=== PATIENT | female | born 1950 | race Caucasian/White ===

== ENCOUNTER 2017-08-15 12:13 | Observation (INO) | payer MEDICARE, OTHER ==
[~2017-08-15] VITALS: Ht 162.6 cm; Wt 65.8 kg
[2017-09-16] MEDS ORDERED: ADVAIR 250-501 EACH INH (11:17)
[2017-09-16] MEDS ORDERED: ASPIR-LOW81 MG PO (11:17)
[2017-09-16] MEDS ORDERED: MAGNESIUM250 M1 PO (11:18)
[2017-09-16] MEDS ORDERED: CALCIUM 500 +1 EAC2 PO (11:18)
[2017-09-16] MEDS ORDERED: ONCE DAILY1 EACH PO (11:18)
[2017-09-18] MEDS ORDERED: ZINC50 MG (07:13)
--- NOTE | 2017-09-18 14:08 | NUR ---
09/18/17 1408 Eulalia Faith 1402-PATIENT ARRIVED TO PACU PM 6L MASK O2 SAT 100% PATIENT REACTIVE OPENS EYES. DENIES PAIN OR NAUSEA. SPINAL AT T9. SR. NO DRAINAGE TO KRISSY AREA. SR. TOBIAS CATHETER IN PLACE
--- NOTE | 2017-09-18 14:45 | NUR ---
PT RETURNED FROM PACU. PT DENIES PAIN AND NAUSEA. SPINAL LEVEL ASSESSED TO BE L1. PT TRANSFERED TO BED WITH 4 PERSON ASSIST. FAMILY AT BEDSIDE. ASSESSMENT DONE. PT ORIENTED TO ROOM AND PROVIDED WITH PLAN OF CARE AND POST OP TEACHING. FAMILY AT BEDSIDE FOR INSTRUCTIONS. BED RAILS UP. CALL LIGHT WITHIN REACH.
--- NOTE | 2017-09-18 15:45 | NUR ---
VITAL SIGNS DUE. PT CONTINUES TO DENY PAIN AND NAUSEA. SPINAL LEVEL AT L2. FAMILY AT BEDSIDE. VITALS TAKEN. BED RAILS UP. CALL LIGHT WITHIN REACH.
--- NOTE | 2017-09-18 16:45 | NUR ---
PT IS RESTING IN BED WITH EYES CLOSED, RESPERATIONS EVEN. PT AWOKE FOR VITALS STATED SHE DID NOT NEED ANYTHING AND FELL BACK ASLEEP.
--- NOTE | 2017-09-18 17:40 | NUR ---
THIS RN TO ROOM FOR ASSESSMENT AND VITAL SIGNS. PT REPORTS "THE ROOM IS MOVING UP AND DOWN." VITALS TAKEN. ASSESSMENT DONE. PT DENIES PAIN AND NAUSEA. SCANT RED DRAINAGE NOTED ON KRISSY PAD AND FROM LAPROSCOPIC SITES. SPINAL AT L3. PT REPORTS THAT THIS "DIZZINESS" IS "HAPPENS AT HOME TOO" AND THAT SHE TAKES MECLIZINE. MD CALLED. MD ORDER PLACED FOR MECLIZINE. PT EATING CRACKERS WITH DAUGHTER'S HELP. NO ADDITIONAL REQUESTS OR COMPLAINTS. BED RAILS UP. CALL LIGHT WITHIN REACH.
--- NOTE | 2017-09-18 18:03 | NUR ---
THIS RN TO ROOM TO GIVE MECLIZINE. PT'S DAUGHTER REPORTS PT HAD EMISIS, 40ML CLEAR YELLOW. MECLIZINE AND ZOFRAN GIVEN (SEE MAR). PT ENCOAURGED TO TRY FLUIDS BUT NO MORE EATING FOR NOW. BED RAILS UP. CALL LIGHT WITHIN REACH.
--- NOTE | 2017-09-18 18:42 | NUR ---
PT HERE PORT TOTAL VAGINAL HYSTERECTOMY. SPINAL LEVEL L3, CONTINUES TO RESOLVE. PT DENIES PAIN BUT HAD AN EPISODE OF NAUSEA AT 1830. PRN ZOFRAN. MECLAZINE GIVEN FOR "THE ROOM MOVING UP AND DOWN" PER HOME BASELINE. TOBIAS CATHETER. FAMILY AT BEDSIDE. PIV IN LEFT HAND, LR AT 125ML/HR. TOBIAS TO DC IN AM. VAGINAL PACKING TO BE REMOVED IN AM.
--- NOTE | 2017-09-18 18:54 | NUR ---
PATIENT LYING IN BED ON PHONE. VITALS AND I/OS DONE. CALL LIGHT IN REACH NO OTHER NEEDS ATT
--- NOTE | 2017-09-18 19:25 | NUR ---
BEDSIDE REPORT RECEIVED FROM REBECCA MURO. PT AWAKE, SITTING UP IN BED, PT DROWSY, SPO2 92%, HR 72, CONTINUOUS PULSE OX IN PLACE. SCDS ON. SCOPALAMINE PATCH IN PLACE, PT HAS EMESIS BAG IN REACH. INCISION SITES ON PELVIC AREA SMALL AMT SANGUINOUS DRAIANGE, KRISSY PAD IN PLACE. IVF INFSUING WNL LEFT HAND. DAUGHTER AT BEDSIDE. WILL CONTINUE TO MONITOR.
--- NOTE | 2017-09-18 20:45 | NUR ---
VITALS AND I&OS DONE AND CHARTED. BEDSIDE TABLE AND CALL LIGHT WITHIN REACH. PT NEEDS NOTHING ELSE AT THIS TIME.
--- NOTE | 2017-09-18 20:50 | NUR ---
PT DROWSY, AWAKENS TO RN VOICE. DENIES PAIN AT THIS TIME, DENIES NAUSEA. DOES CONTINUE TO C/O DIZZINESS, "SPINNING". PT REFUSING PO MEDICATIONS AT THIS TIME, DAUGHTER AT BEDSIDE. SMALL AMT SANGUINOUS DRAINAGE NOTED PELVIC AREA, KRISSY PAD IN PLACE. CSM INTACT BILATERALLY UPPER AND LOWER EXTREMITIES. IV FLUSHED, INFUSING WNL. LUNGS CLEAR, DIMINISHED THROUGHOUT. PT ENCOURAGED TO DEEP BREATHE. PT GIVEN SPRITE, ICE WATER REQUESTED. ALSO GIVEN SPRITE. NO ADDL REQUESTS, CALL LIGHT IN REACH.
--- NOTE | 2017-09-18 21:23 | NUR ---
Rounding charge nurse note:, Awake, visiting with family, IVf infusing, f/c patent, no requests at this time
--- NOTE | 2017-09-18 22:40 | NUR ---
CALL LIGHT ANSWERED, NEW IVF BAG INFUSING AT THIS TIME. PT CONTINUES TO REFUSE PO MEDICATIONS, REQUESTING TO REST. CALL LIGHT IN REACH, DAUGHTER IN ROOM.
--- NOTE | 2017-09-18 23:45 | NUR ---
CHECKED ON PT, PT APPEARS TO BE SLEEPING, VISIBLE CHEST RISE, SPO2 92% ON ROOM AIR. SCDS ON, IVF INFUSING. WILL CONTINUE TO MONITOR, LIGHTS OFF IN ROOM, DAUGHTER IN ROOM.
--- NOTE | 2017-09-19 01:50 | NUR ---
CHECKED ON PT, PT SLEEPING, SNORING, SPO2 88% AT THIS TIME, ADMINISTERED 1L OXYGEN BY NC, SPO2 INCREASES TO 98%. BLOOD PRESSURE 103/51, HR 68, RR 14. NO NEW DRAINAGE NOTED AT LAP SITES, SMALL AMOUNT DRIED SANGUINOUS DRAINAGE NOTED. KRISSY PAD AND MESH UNDERWEAR IN PLACE. BOWEL TONES ACTIVE X 4, ABDOMEN SOFT. PT DENIES NAUSEA, STATES SPINNING HAS IMPROVED. PT SAT UP, ABLE TO DRINK SIPS OF WATER. TOBIAS EMPTIED. PT HAS NO ADDL REQUESTS. LUNGS CLEAR, DIMINISHED IN BASES. SCDS ON. CALL LIGHT IN REACH.
--- NOTE | 2017-09-19 02:54 | NUR ---
CHECKED ON PT, PT SLEEPING, EYES CLOSED, SNORING, SPO2 95% ON 1L OXYGEN BY NC. LIGHTS OFF IN ROOM, SCDS ON.
--- NOTE | 2017-09-19 04:39 | NUR ---
PT SLEPT WELL THROUGHOUT SHIFT, REQUIRING 1L OXYGEN BY NC WITH SLEEP TO MAINTAIN SATURATIONS >92%. SMALL AMT OF SANGUINOUS DRAINAGE FROM LAP SITES. PT ABLE TO AMBULATE IN ROOM WITH SBA. HAS REFUSED SCHEDULED PO MEDICATIONS DUE TO NAUSEA, DIZZINESS, SCOPALOMINE PATCH IN PLACE, TOLERATING LIQUIDS WELL. NO EMESIS THIS SHIFT. CONTINUES TO DENY PAIN THROUGHOUT SHIFT, CSM INTACT BLE, BUE.
--- NOTE | 2017-09-19 06:30 | NUR ---
VITALS AND IS AND OS COMPLETE AT THIS TIME. PT DROWSY, AWAKENS TO VOICE, ALERT AND ORIENTED ONCE AWAKE. PT ABLE TO DANGLE AT SIDE OF BED, BP 93/54 (62), HR 58. PT DENIES PAIN, RATES 1-2/10 WHEN PROMPTED. VAGINAL PACKING AND TOBIAS CATHETER REMOVED AT THIS TIME WNL, PT TOLERATED WELL. NO NEW DRAINAGE TO LAP SITES. MOTRIN PO ADMINISTERED AT THIS TIME, PT EATING CRACKERS, DRINKING WATER, DENIES NAUSEA. DAUGHTER AT BEDSIDE.
--- NOTE | 2017-09-19 08:38 | NUR ---
CHANGED PATIENT'S BED LINENS. ASKED HER IF SHE WANTED TO TAKE A SHOWER TODAY, PATIENT SAID NO SHE WILL TAKE ONE WHEN SHE GETS HOME. GAVE FAMILY MEMBER A WARM BLANKET. SHE IS SITTING UP IN HER CHAIR WATCHING TV AND EATING HER BREAKFAST.
[2017-09-19] MEDS ORDERED: ADVAIR HFA 115-12 GM INH (08:53)
--- NOTE | 2017-09-19 10:00 | NUR ---
PATIENT UP AMBULATING IN HALLS, PATIENT VOIDING WELL WITH PVR RECORDED. PATIENT DAUGHTER ADAIR REPORTS PATIENT URINATING Q2 HRS. NO COMPLAINTS OF PAIN. ABDOMEN SOFT, PATIENT PASSING GAS.
[2017-09-19] MEDS ORDERED: VENTOLIN HFA18 GM INH (10:44)
--- NOTE | 2017-09-19 10:45 | NUR ---
MED REC COMPLET WITH BIMART REFILL HISTORY AND PATIENT INTERVIEW.
--- NOTE | 2017-09-19 11:49 | NUR ---
PATIENT SITTING UP IN BED EATING LUNCH. NO COMPLAINTS OF PAIN. PLANS TO GO TO THE BATHROOM WHEN DONE EATING. DAUGHTER ADAIR AT BEDSIDE. PAIN WELL CONTROLLED. VS STABLE. BP SOFT.
--- NOTE | 2017-09-19 12:30 | NUR ---
PATIENT VOIDING TRIALS SUCCESSFUL AND PATIENT VOIDING WELL. CALL TO DR. TAN WHO PROVIDED VERBAL ORDER TO DISCHARGE HOME. DR. TAN WILL COME IN A FEW HOURS TO WRITE SCRIPTS FOR PATIENT. DISCUSSED WITH PATIENT WHO VERBALIZED UNDERSTANDING. REPORTS PAIN TOLERABLE. DISCUSSED HOME ACTIVITIES AND IMPORTANCE OF LIGHT ACTIVITY, NO HOUSE CHORES WHILE MENDING. PATIENT VERBALIZED UNDERSTANDING.
[2017-09-19] MEDS ORDERED: IBUPROFEN800 MG PO (14:28)
[2017-09-19] MEDS ORDERED: PERCOCET 5-3251 EACH PO (14:28)
--- NOTE | 2017-09-19 17:26 | OR ---
[address] [address] Signed DATE OF OPERATION: 09/18/2017 SURGEON: Elliot Jacobo MD PRIMARY CARE PROVIDER: Brandy Dawkins PA-C PREOPERATIVE DIAGNOSIS: Uterovaginal prolapse complete and stress urinary incontinence. PROCEDURE: Vaginal hysterectomy plus anterior repair, TVT sling urethropexy and cystourethroscopy by Dr. Martinez. SURVEY PROJECT MANAGER: Dr. Martinez for the vaginal hysterectomy. ANESTHESIA: Spinal. ESTIMATED BLOOD LOSS: 100 mL. SPECIMEN: Uterus. DRAINS: Tracy to bladder. FINDINGS: Cervix normal small size with small size uterus with normal shaped with a grade 3 prolapse, normal tubes bilaterally. Very small atrophic ovaries bilateral. There was a grade 3-4 cystourethrocele. No obvious rectocele. COMPLICATIONS: None. DESCRIPTION OF PROCEDURE: The patient was brought to the operating room. After adequate spinal anesthesia was obtained, was placed in dorsal lithotomy position, prepped and draped in usual sterile Electronically Signed By: ELLIOT JACOBO MD 09/19/17 1726 PATIENT NAME: LEIGHA PRINCE OPERATIVE REPORT DATE OF : 52 REPORT #: [id number] PHYSICIAN: ELLIOT JACOBO MD PCP: BRANDY DAWKINS PA-C REPORT IS CONFIDENTIAL AND NOT TO BE RELEASED WITHOUT AUTHORIZATION [address] [address] Signed fashion. Tracy catheter was placed in the bladder. Weighted speculum was placed in the vagina and the cervix grasped with two single-tooth tenacula. The posterior colpotomy was made with a curved scissors and [place] weighted speculum placed through the posterior cul-de-sac replacing the other weighted speculum. Two uterosacral ligaments were clamped on each side using curved Filiberto clamps, each pedicle was cut with scissors and then stick-tied with O Vicryl suture. Additional pedicle was clamped laterally one on each side. After the two uterosacral ligament pedicles were stitched, scalp was used to cut the anterior vaginal mucosa between the two pedicles and blunt dissection used to elevate the bladder up along the anterior aspect of the uterus. Two additional pedicles were created by clamping against the side of the cervix with curved Filiberto clamp and on each side, and each side cutting with curved scissors and stick-tied with 0 Vicryl suture. At this point, the anterior the anterior vaginal mucosa was pushed up further so that the anterior peritoneum could be identified. This was opened with curved scissors and Kalpesh clamp placed through the anterior cul-de-sac. The remaining pedicles clamped the anterior and posterior leaves of broad ligament together, clamping with Filiberto clamps and cutting with scissors and stick tying with 0 Vicryl suture. The final upper pedicles including round and utero-ovarian ligaments and the fallopian tube were clamped with curved Filiberto clamps, and the pedicles cut with scissors removing the uterus. The upper pedicles were free tied then stick-tied with 0 Vicryl suture. The two suture lines were carefully examined on each side noted to have good hemostasis. At this time, the anterior peritoneum was identified, grasped with a long Allis and then the pursestring stitch of 2-0 Vicryl suture used between the two lower pedicles creating a pursestring stitch, which was closed making sure no bowel or pelvic structures were caught within the closure. With the peritoneum closed, the two upper pedicle stitches were tied together for further support of the cuff. At this point, the vaginal mucosa was closed using running locking stitch of 0 Vicryl suture between the two uterosacral ligament pedicles. At this point, good hemostasis was obtained and good cuff closure was noted. The sling urethropexy anterior repair with cystoscopy were then done. Please see Dr. Martinez's dictation for this part of the procedure. At the end of the procedure, Tracy catheter was placed back in the bladder. Premarin soaked gauze was placed in the vagina. The patient tolerated the procedure well and went to recovery room in good condition. The sponge, needle, and instrument counts were correct at the end of procedure. The uterus was sent to Pathology for identification. Electronically Signed By: ELLIOT JACOBO MD 09/19/17 1726 PATIENT NAME: LEIGHA PRINCE OPERATIVE REPORT DATE OF : 52 REPORT #: [id number] PHYSICIAN: ELLIOT JACOBO MD PCP: BRANDY DAWKINS PA-C REPORT IS CONFIDENTIAL AND NOT TO BE RELEASED WITHOUT AUTHORIZATION [facility] [address] [place] [id number] Signed Elliot Jacobo MD MJB/MODL /[id number] cc: Brandy Dawkins PA-C Copies: BRANDY DAWKINS PA-C ~ Electronically Signed By: ELLIOT JACOBO MD 09/19/17 1726 PATIENT NAME: LEIGHA PRINCE CARL OPERATIVE REPORT DATE OF : 52 REPORT #: [id number] PHYSICIAN: ELLIOT JACOBO MD PCP: BRANDY DAWKINS PA-C REPORT IS CONFIDENTIAL AND NOT TO BE RELEASED WITHOUT AUTHORIZATION
--- NOTE | 2017-10-02 12:21 | OR ---
[address] [address] Signed DATE OF OPERATION: 09/18/2017 SURGEON: Brianne Martinez DO PREOPERATIVE DIAGNOSES: 1. Pelvic organ prolapse, complete. 2. Stress urinary incontinence. POSTOPERATIVE DIAGNOSES: 1. Pelvic organ prolapse, complete. 2. Stress urinary incontinence. PROCEDURES PERFORMED: 1. TVT Exact mid urethral sling. 2. Anterior repair. 3. Cystourethroscopy. FRAUD ANALYST: Elliot Jacobo MD ANESTHESIA: Spinal. ESTIMATED BLOOD LOSS: 100 mL. CULTURES: None. IMPLANTS: TVT Exact mid urethral sling. FINDINGS: The patient with normal external genitalia, urethral meatus, bilateral [place]'s and Bartholin's. She has significant anterior compartment prolapse with good posterior compartment support. On cystourethroscopy, she has a normal urethra and normal bladder without injury with optimal placement of trocars. Bilateral ureteral jets are noted after mid urethral sling and again after anterior repair. COMPLICATIONS: Electronically Signed By: BRIANNE MARTINEZ DO 10/02/17 1221 PATIENT NAME: LEIGHA PRINCE OPERATIVE REPORT DATE OF : 52 REPORT #: [id number] PHYSICIAN: BRIANNE MARTINEZ DO PCP: CHRISTIN ROMANO PA-C REPORT IS CONFIDENTIAL AND NOT TO BE RELEASED WITHOUT AUTHORIZATION [address] [address] Signed None. INDICATIONS: Ms. Prince is a pleasant, 66-year-old female with complete pelvic organ prolapse with good posterior compartment support and poor anterior compartment prolapse that extends approximately 2 cm beyond the introitus. The patient also has some stress urinary incontinence. We discussed treatment of her pelvic organ prolapse with total vaginal hysterectomy, anterior repair, and treatment of stress urinary incontinence with TVT Exact mid urethral sling. Risks, benefits, and alternatives were discussed in detail with the patient. The patient understands and wishes to proceed with the procedure. TECHNIQUE: Please see Dr. Jacobo's operative note in regard to the patient's positioning, preoperative antibiotics, and total vaginal hysterectomy. Upon completion of the total vaginal hysterectomy, attention was turned to placement of the mid urethral sling. A Tracy catheter had previously been inserted and the course of the urethra was noted by palpating the Tracy balloon. An Allis clamp was placed approximately 1 cm away from the urethral meatus and another overlying the bladder neck. This area was infiltrated with 0.25% Marcaine with epinephrine and incision was made using a surgical scalpel. The vaginal epithelium was dissected and dissection tract was created toward the right shoulder to the level of the pubic symphysis. This process was repeated on the patient's left side without complication. Trocar exit sites were then marked at the level of the pubic symphysis approximately 2.5 cm from the midline. The TVT Exact System was selected and the trocar was loaded. This was placed in the previously created dissection plane and advanced to the inferior border of the pubic symphysis. The tip of the trocar was brought just posterior to the pubic symphysis the tip was advanced and surgeon's had was dropped and brought to midline as trochar tip followed the pubic symphysis and was brought through the skin at the previously marked trocar exit site. The skin was nicked with a surgical scalpel, and the trocar was passed through the skin and grasped with a hemostat. This process was repeated on the left side without complication. During placement of the trocars, the bladder was manipulated with stylet cephalad and toward the contralateral shoulder to minimize risk of perforation of the bladder. The Tracy catheter was then removed and cystourethroscopy was performed. The cystoscope was placed into the urethral meatus, and advanced slowly and gently through the urethra and into the bladder. Normal urethra was noted without injury. The entire bladder was carefully examined and found to be intact with optimal trocar placement noted. Bilateral ureteral jets were seen. The bladder was drained. The Tracy catheter was reinserted and the sling was approximated near the urethra to the mid urethra. A right angle clamp was used to ensure that optimal placement was obtained with tension-free placement noted. The mesh was then cut at the skin and skin was elevated with Adson forceps. The vaginal epithelium was then reapproximated with 2-0 Vicryl in a running Electronically Signed By: BRIANNE MARTINEZ DO 10/02/17 1221 PATIENT NAME: LEIGHA PRINCE OPERATIVE REPORT DATE OF : 52 REPORT #: [id number] PHYSICIAN: BRIANNE MARTINEZ DO PCP: CHRISTIN ROMANO PA-C REPORT IS CONFIDENTIAL AND NOT TO BE RELEASED WITHOUT AUTHORIZATION [facility] [address] [place] [id number] Signed locked manner again after ensuring that tension-free placement was obtained. Good hemostasis was appreciated. Attention was then turned to anterior repair. The vaginal apex was grasped with an Allis clamp and the anterior vaginal epithelium was infiltrated with 0.25% Marcaine with epinephrine. An incision was made through the vaginal epithelium, and the vaginal epithelium was then dissected bluntly and sharply using Metzenbaum scissors. The underlying perivesical tissue was readily mobilized off the vagina. A pursestring suture was then applied to the perivesical tissue with good support circumferentially and this was closed in a pursestring manner with 2-0 Vicryl. A second pursestring suture was placed just distal to this again with good support noted. The vaginal epithelium was then trimmed using Metzenbaum scissors and good reduction of the anterior compartment prolapse was noted. The vaginal epithelium was then reapproximated with 0 Vicryl in a running locked manner. Good hemostasis was appreciated. The Tracy catheter was again removed, and cystourethroscopy was performed demonstrating a normal urethra and normal bladder with bilateral ureteral jets noted. The bladder was drained, a Tracy catheter was reinserted, and the vagina was packed with Kerlix impregnated with Premarin cream. The patient was then taken the PACU in good and stable condition. Sponge, needle, and instrument counts were correct x2 at the end of procedure. Dr. Jacobo was present and participated in all portions of the procedure. Brianne Martinez DO JDW/MODL /[id number] Copies: ~ Electronically Signed By: BRIANNE MARTINEZ DO 10/02/17 1221 PATIENT NAME: LEIGHA PRINCE OPERATIVE REPORT DATE OF : 52 REPORT #: [id number] PHYSICIAN: BRIANNE MARTINEZ DO PCP: CHRISTIN ROMANO PA-C REPORT IS CONFIDENTIAL AND NOT TO BE RELEASED WITHOUT AUTHORIZATION
== END 2017-09-19 14:58 | disposition home or self-care (01) ==
LOC: MS 09-18 07:00 → DSVR 09-18 07:00 → MS 09-18 07:00 → EDSTATUS 09-18 09:00 → MS 09-18 14:38 → DSVR 09-18 14:38 → MS 09-19 14:58
PROVIDERS: ADMIT General Practice
PROC: 0UT97ZZ Resection of Uterus, Via Natural or Artificial Opening (ICD-10-PCS; principal; 2017-09-18 09:00)
PROC: 0TSD0ZZ Reposition Urethra, Open Approach (ICD-10-PCS; 2017-09-18 09:00)
DX: N81.3 Complete uterovaginal prolapse (principal); N39.3 Stress incontinence (female) (male); N88.8 Other specified noninflammatory disorders of cervix uteri; D25.1 Intramural leiomyoma of uterus; J45.909 Unspecified asthma, uncomplicated; K21.9 Gastro-esophageal reflux disease without esophagitis; D25.2 Subserosal leiomyoma of uterus; R11.2 Nausea with vomiting, unspecified; Z88.5 Allergy status to narcotic agent; Z79.899 Other long term (current) drug therapy; Z79.82 Long term (current) use of aspirin; Z79.51 Long term (current) use of inhaled steroids
CPT/HCPCS: 00944; 36415; 85027; 88307; 94762; 96374; C1771; G0378; J0690; J1100; J1644; J1885; J2250; J2274; J2405; J2550; J2704; J2765; J3010; J7120

== ENCOUNTER 2022-03-25 07:31 | Day surgery (SDC) | payer MEDICARE, OTHER ==
[~2022-03-25] VITALS: Ht 162.6 cm; Wt 61.0 kg
[~2022-03-25 07:31] MED LIST: ADVAIR 250-501 EACH INH; ADVAIR HFA 115-12 GM INH; ASPIR-LOW81 MG PO; BREO ELLIPTA 21 EACH INH; CALCIUM 500 +1 EAC2 PO; FERROUSUL325 MG PO; FOSAMAX70 MG PO; IBUPROFEN800 MG PO; MAGNESIUM250 M1 PO; ONCE DAILY1 EACH PO; PERCOCET 5-3251 EACH PO; PRINIVIL10 MG PO; VENTOLIN HFA18 GM INH; ZINC50 MG
--- NOTE | 2022-03-25 09:34 | NUR ---
03/25/22 0934 Catherine Tobin 0904 PT ARRIVED IN PACU SLEEPY WITH NO C/O'S. ABD SOFT. 0920 AT BEDSIDE. ALL QUESTIONS ANSWERED. 0934 RESTING. REU.
--- NOTE | 2022-03-25 10:25 | NUR ---
PT ALERT, ORIENTED AND SUPPORTED BY HER DAUGHTER ADAIR. PT SEEMS INFORMED, ALL QUESTIONS ASKED ANSWERED. PT REQUESTED PRAYER, ADAIR WILL REMAIN FOR DC WILL FOLLOW NEEDED
--- NOTE | 2022-03-26 13:19 | PATH ---
[facility] [address] [place], [place] [address] Signed SPECIMEN(S): A CECAL POLYP SPECIMEN SOURCE: A. CECAL POLYP CLINICAL HISTORY: Unremarkable colonoscopy in 2003. Postop: Diverticulosis; polyp x 1. FINAL PATHOLOGIC DIAGNOSIS: Cecal polyp: - Benign colonic mucosa with polypoid features, negative for pathologic inflammation or epithelial dysplasia. JVR:[id number] MICROSCOPIC EXAMINATION: Histologic sections of all submitted blocks are examined by light microscopy. These findings, together with the gross examination, support the pathologic diagnosis. GROSS DESCRIPTION: The specimen, labeled "DAP," is received in formalin and consists of four pereyra soft tissue fragments that measure 0.3 cm in greatest dimension. The specimen is entirely submitted in cassette (A1). KV (under the direct supervision of a pathologist) The Gross Description was prepared using a voice recognition system. The report was reviewed for accuracy; however, sound-alike word errors, addition and/or deletions may occur. If there is any question about this report, please contact Client Services. PERFORMING LABORATORY: The technical component was performed by [facility], [address] [place] [id number] (CLIA# [id number]). Professional interpretation was performed by [facility], [address] [place] [id number] (CLIA#: [id number]). Diagnostician: Napoleon Holly MD Pathologist Electronically Signed 03/26/2022 PATIENT NAME: LEIGHA PRINCE RECORD #: [id number] PATHOLOGY DATE OF : 52 REPORT #: [id number] PHYSICIAN: [facility] PCP: CHRISTIN ROMANO PA-C REPORT IS CONFIDENTIAL AND NOT TO BE RELEASED WITHOUT AUTHORIZATION [address] [address] Signed Copies: ~ PATIENT NAME: LEIGHA PRINCE PATHOLOGY DATE OF : 52 REPORT #: [id number] PHYSICIAN: [facility] PCP: CHRISTIN ROMANO PA-C REPORT IS CONFIDENTIAL AND NOT TO BE RELEASED WITHOUT AUTHORIZATION
--- NOTE | 2022-03-26 17:55 | OR ---
[facility] [address] [place], [place] [address] Signed DATE OF OPERATION: 03/25/2022 SURGEON: Onofre Larios MD PREOPERATIVE DIAGNOSIS: Colon screening. POSTOPERATIVE DIAGNOSES: 1. Small polyp of cecum (excised). 2. Mild diverticulosis. PROCEDURE: Total colonoscopy to cecum with cold morcellation polypectomy x1. ANESTHESIA: Intravenous sedation fentanyl 100 mcg and Versed 5 mg. INDICATION: This 71-year-old white woman is a patient of ASHA Rutledge and familiar to me from the past having undergone colonoscopy in 2003. She has no family history of colon cancer and is generally symptom-free. She has undergone hysterectomy in the past. She is admitted at this time to undergo screening colonoscopy, understands the risks of bleeding, infection, and perforation. FINDINGS: The prep was good. Complete colonoscopy was undertaken to the cecum without question. She had a small adenomatous polyp of the cecum, which was excised with cold morcellation technique. She had scattered diverticula of the sigmoid colon and a few elsewhere. There were no other findings of concern. PROCEDURE IN DETAIL: The patient was brought to the endoscopy suite and placed in lateral decubitus position, given intravenous sedation to the point of slurred speech and nystagmus. Digital rectal examination was normal. An Olympus video colonoscope was passed in the rectum and manipulated throughout the colon ultimately intubating the cecum itself. The ileocecal valve and appendiceal orifice were normal. The scope was withdrawn and noted still within the cecum was a small adenomatous appearing polyp. This was excised with cold morcellation technique. A few scattered diverticula were noted in the right colon as well. The scope was Electronically Signed By: ONOFRE LARIOS MD 03/26/22 1147 PATIENT NAME: LEIGHA PRINCE OPERATIVE REPORT DATE OF : 52 REPORT #: [id number] PHYSICIAN: ONOFRE LARIOS MD PCP: BRANDY DAWKINS PA-C REPORT IS CONFIDENTIAL AND NOT TO BE RELEASED WITHOUT AUTHORIZATION [facility] [address] [place] [id number] Signed withdrawn and examination throughout, showed no sign of other abnormality other than diverticular changes as described. Retroflexed view was normal as well. The scope was removed. The patient was taken to the recovery room in good condition, CONCLUDING DIAGNOSIS: Polyps x1 and diverticulosis. PLAN: Recommend repeat colonoscopy in 5 years, sooner if clinically indicated. She will return to the ongoing care of PA. Maty MD ROSEMARY Son/BINH /[id number] cc: Brandy Dawkins PA-C Copies: BRANDY DAWKINS PA-C ~ Electronically Signed By: ONOFRE LARIOS MD 03/26/22 1755 PATIENT NAME: LEIGHA PRINCE OPERATIVE REPORT DATE OF : 52 REPORT #: [id number] PHYSICIAN: ONOFRE LARIOS MD PCP: BRANDY DAWKINS PA-C REPORT IS CONFIDENTIAL AND NOT TO BE RELEASED WITHOUT AUTHORIZATION
== END 2022-03-25 10:02 | disposition home or self-care (01) ==
LOC: OPS 07:31 → DS 07:37 → OPS 08:30 → DS 08:30 → OPS 10:02
PROVIDERS: ATTEND Surgery
DX: Z12.11 Encounter for screening for malignant neoplasm of colon (principal); K57.30 Diverticulosis of large intestine without perforation or abscess without bleeding; K63.5 Polyp of colon; J45.909 Unspecified asthma, uncomplicated; Z86.16 Personal history of COVID-19; Z20.822 Contact with and (suspected) exposure to COVID-19
CPT/HCPCS: 88305; 99153; G0500; J2250; J3010; J7121